=== PATIENT | female | born 1940 | race Two or more races ===

== ENCOUNTER 2022-05-11 10:37 | Inpatient (IN) | payer MEDICARE, OTHER ==
[~2022-05-11] VITALS: Ht 162.6 cm; Wt 69.3 kg
[~2022-05-11 10:37] MED LIST: ASPI81CH49 PO; ATOR20TA50 PO; CALC600T16 PO; METO25TA93 PO; NATE120T5 PO; OLME40TA26 PO
[2022-05-11 10:44] VITALS: BP 134/95
[2022-05-11] MEDS ORDERED: ASPirin 325 MG TAB PO ONE (11:00)
[2022-05-11 11:29] LABS: Basophils # (auto) 0.1 10 ^3/uL (0-0.2); Eosinophils # (auto) 0.1 10 ^3/uL (0-0.8); Hemoglobin 11.4 g/dL (12.2-16.2); Lymphocytes # (auto) 1.8 10 ^3/uL (0.4-5.4)
[2022-05-11 11:32] LABS: Eosinophils % (auto) 1.9 % (0.0-7.0); Hematocrit 36.2 % (36.0-46.0); Mean Corpuscular Hemoglobin 25.8 pg (28.0-32.0); Mean Corpuscular Hgb Conc. 31.5 g/dL (32.0-36.0); Mean Corpuscular Volume 82.1 fL (80.0-100.0); Monocytes # (auto) 0.5 10 ^3/uL (0-1.3); Monocytes % (auto) 6.5 % (0.0-12.0); Neutrophils # (auto) 4.5 10 ^3/uL (1.6-8.6); Neutrophils % (auto) 64.6 % (37.0-80.0)
[2022-05-11 11:53] LABS: Albumin 3.9 g/dL (3.4-5.0); BUN/Creatinine Ratio 11.1; Bilirubin, Total 0.4 mg/dL (0.2-1.0); Calcium 9.3 mg/dL (8.5-10.1); Potassium 4.1 mmol/L (3.5-5.1); Total Protein 7.6 g/dL (6.4-8.2)
[2022-05-11] MEDS ORDERED: MORPHINE SULFATE INJ 2 MG/ml SYRG IV PRN (15:15)
[2022-05-11] MEDS ORDERED: NITROGLYCERIN 0.4 MG SL TAB SL PRN (15:15)
[2022-05-11] MEDS ORDERED: ACETAMINOPHEN 500 MG TAB PO PRN (15:15)
[2022-05-11] MEDS ORDERED: ONDANSETRON HCL 4 MG/2 ML VIAL IV PRN (15:15)
[2022-05-11] MEDS ORDERED: ATORVASTATIN 20 MG TAB PO SCH (22:00)
[2022-05-11] MEDS ORDERED: DOCUSATE SOD 100 MG CAP PO SCH (22:00)
[2022-05-12] MEDS ORDERED: ASPirin-EC 81 mg tab PO SCH (10:00)
== END 2022-05-11 20:01 | disposition left against medical advice (07) | DRG 311 ==
LOC: ER 10:37 → TELE 15:22
PROVIDERS: ADMIT Nurse Practitioner Acute Care; ATTEND Nurse Practitioner Acute Care
DX: I24.9 Acute ischemic heart disease, unspecified (principal); E11.65 Type 2 diabetes mellitus with hyperglycemia; E78.5 Hyperlipidemia, unspecified; I10 Essential (primary) hypertension; Z53.29 Procedure and treatment not carried out because of patient's decision for other reasons; J44.9 Chronic obstructive pulmonary disease, unspecified; Z79.82 Long term (current) use of aspirin; Z79.899 Other long term (current) drug therapy; Z87.891 Personal history of nicotine dependence; Z94.9 Transplanted organ and tissue status, unspecified; Z98.51 Tubal ligation status; Z79.84 Long term (current) use of oral hypoglycemic drugs
CPT/HCPCS: 36415; 71045; 80053; 84484; 85025; 86141; 93005; G0378